=== PATIENT | female | born 1985 ===

== ENCOUNTER 2021-12-02 14:31 | Emergency (ER) | payer OTHER ==
[~2021-12-02] VITALS: Ht 157.5 cm; Wt 47.6 kg
[~2021-12-02 14:31] MED LIST: MOTRIN800 MG PO
[2021-12-02] MEDS ORDERED: PROMETH-CODEIN 65 ML PO (17:11)
[2021-12-02] MEDS ORDERED: BUDESONIDE0.5 MG/2 M IH (17:11)
[2021-12-02] MEDS ORDERED: MUCINEX D ER 11 EACH PO (17:11)
[2021-12-02] MEDS ORDERED: IPRAT-ALBUT 0.5-3 ML IH (17:11)
== END 2021-12-02 17:42 | disposition home or self-care (01) ==
LOC: ER 14:31
DX: J98.01 Acute bronchospasm (principal); J98.8 Other specified respiratory disorders; Z20.822 Contact with and (suspected) exposure to COVID-19

== ENCOUNTER 2022-03-04 08:51 | Outpatient (CLI) | payer OTHER ==
[~2022-03-04 08:51] MED LIST changes: +BUDESONIDE0.5 MG/2 M IH; +IPRAT-ALBUT 0.5-3 ML IH; +MUCINEX D ER 11 EACH PO; +PROMETH-CODEIN 65 ML PO
== END 2022-03-04 09:05 | disposition home or self-care (01) ==
LOC: RAD 08:51
PROVIDERS: ATTEND Legal Medicine
DX: R05.9 Cough, unspecified (principal)